=== PATIENT | male | born 1955 | race Caucasian/White ===

== ENCOUNTER 2017-03-08 21:58 | Emergency (ER) | payer MEDICAID, OTHER ==
[~2017-03-08] VITALS: Ht 167.6 cm; Wt 77.0 kg
[~2017-03-08 21:58] MED LIST: ALD50 PO; FURO-151 PO; KLUD20 PO; LACT10SO7 PO
[2017-03-08 23:51] VITALS: BP 140/90
[2017-03-09] MEDS ORDERED: SODIUM CHLORIDE 0.9% 500 ML IV ONE
[2017-03-09] MEDS ORDERED: MORPHINE SULFATE 4 MG/ML CPJ (NOT FOR IM USE) IV ONE
[2017-03-09] MEDS ORDERED: ONDANSETRON HCL 4MG/2ML VIAL IV ONE
== END 2017-03-09 | disposition left against medical advice (07) ==
LOC: ER 21:59
DX: K42.9 Umbilical hernia without obstruction or gangrene (principal); E11.9 Type 2 diabetes mellitus without complications; Z79.899 Other long term (current) drug therapy
CPT/HCPCS: 99283; J7040